=== PATIENT | female | born 1960 | race Two or more races ===

== ENCOUNTER 2019-09-04 10:16 | Inpatient (IN) | payer OTHER ==
[~2019-09-04] VITALS: Ht 162.6 cm; Wt 67.1 kg
--- NOTE | 2019-09-04 10:30 | NUR ---
SE RECIBE PACIENTE ALERTA Y ORIENTADA EN LAS [place] ESFERAS, VERBALIZA DOLOR ROCIO ABDOMINAL Y VOMITOS X 3. LA MISMA SE UBICA EN AREA [facility] [place] PARA EVALUACION MEDICA.
--- NOTE | 2019-09-04 11:58 | NUR ---
SE ORIENTA AL PACIENTE SOBRE MEDICAMENTO Y MUESTRAS A SER COLECTADAS LAURA ORDEN MEDICA. PACIENTE REFIERE ENTENDER. SE PROCEEDE A COLECTAR LAS MUESTRAS UTILIZANDO MEDIDAS ASEPTICAS Y SE ENVIAN AL LABORATORIO. SE PROVEE LOS MEDICAMENTOS Y SE OBSERVA AL PACIENTE POR CAMBIOS EN CONDICION. SE CANALIZA AL PACIENTE UTILIZANDO MEDIDAS ASEPICAS Y SE VERIFICA LA PAENTICIDAD DE LA MISMA. LA MISMA ESTA PATENTE, GREGORY DE EDEMA Y ENROJECIMIENTO.
[2019-09-25] MEDS ORDERED: AMOX-CLAV 875-1 EACH PO (12:03)
[2019-09-25] MEDS ORDERED: INTESTINEX680 M1 PO (12:03)
[2019-09-25] MEDS ORDERED: INTEGRA PLUS C1 EACH PO (12:04)
[2019-09-25] MEDS ORDERED: VITAMIN B-121000 MC2 SL (12:05)
[2019-09-25] MEDS ORDERED: FOLIC ACID0.8 M1 PO (12:07)
[2019-09-25] MEDS ORDERED: GABAPENTIN400 MG PO (12:09)
[2019-09-25] MEDS ORDERED: GABAPENTIN100 MG PO (12:13)
[2019-09-25] MEDS ORDERED: ULTRACET PO (12:18)
[2019-09-25] MEDS ORDERED: VITAMIN D310000 UNIT PO (12:23)
== END 2019-09-25 13:20 | disposition home or self-care (01) | DRG 329 ==
LOC: ER 10:16 → ICU 19:58 → MEDJ 19:58 → ICU 09-06 21:51 → SURH 09-17 13:16
PROVIDERS: Surgery; ADMIT Internal Medicine
PROC: BW21ZZZ Computerized Tomography (CT Scan) of Abdomen and Pelvis (ICD-10-PCS; 2019-09-04)
PROC: 0D1L0Z4 Bypass Transverse Colon to Cutaneous, Open Approach (ICD-10-PCS; 2019-09-07)
PROC: 4A033R1 Measurement of Arterial Saturation, Peripheral, Percutaneous Approach (ICD-10-PCS; 2019-09-07)
PROC: 0DH67UZ Insertion of Feeding Device into Stomach, Via Natural or Artificial Opening (ICD-10-PCS; 2019-09-07)
PROC: 3E0G76Z Introduction of Nutritional Substance into Upper GI, Via Natural or Artificial Opening (ICD-10-PCS; 2019-09-07)
PROC: 0DTN0ZZ Resection of Sigmoid Colon, Open Approach (ICD-10-PCS; principal; 2019-09-07 10:00)
PROC: 02HV33Z Insertion of Infusion Device into Superior Vena Cava, Percutaneous Approach (ICD-10-PCS; 2019-09-09)
PROC: 3E0336Z Introduction of Nutritional Substance into Peripheral Vein, Percutaneous Approach (ICD-10-PCS; 2019-09-09)
PROC: BW21Y0Z Computerized Tomography (CT Scan) of Abdomen and Pelvis using Other Contrast, Unenhanced and Enhanced (ICD-10-PCS; 2019-09-14)
PROC: 0W9F30Z Drainage of Abdominal Wall with Drainage Device, Percutaneous Approach (ICD-10-PCS; 2019-09-16)
PROC: 4A12X4Z Monitoring of Cardiac Electrical Activity, External Approach (ICD-10-PCS; 2019-09-17)
PROC: 8E0ZXY6 Isolation (ICD-10-PCS; 2019-09-17)
PROC: 30233N1 Transfusion of Nonautologous Red Blood Cells into Peripheral Vein, Percutaneous Approach (ICD-10-PCS; 2019-09-21)
PROC: BB24ZZZ Computerized Tomography (CT Scan) of Bilateral Lungs (ICD-10-PCS; 2019-09-23)
DX: K57.20 Diverticulitis of large intestine with perforation and abscess without bleeding (principal); K65.8 Other peritonitis; A41.9 Sepsis, unspecified organism; J18.1 Lobar pneumonia, unspecified organism; J90 Pleural effusion, not elsewhere classified; K56.690 Other partial intestinal obstruction; J98.11 Atelectasis; N17.8 Other acute kidney failure; D62 Acute posthemorrhagic anemia; J95.89 Other postprocedural complications and disorders of respiratory system, not elsewhere classified; E44.0 Moderate protein-calorie malnutrition; K92.1 Melena; E87.0 Hyperosmolality and hypernatremia; E87.6 Hypokalemia; D69.49 Other primary thrombocytopenia; E86.0 Dehydration; M62.81 Muscle weakness (generalized); R09.02 Hypoxemia; K63.89 Other specified diseases of intestine; K44.9 Diaphragmatic hernia without obstruction or gangrene; E11.9 Type 2 diabetes mellitus without complications; Z79.4 Long term (current) use of insulin

== ENCOUNTER 2019-10-07 14:57 | Outpatient (CLI) | payer OTHER ==
[~2019-10-07 14:57] MED LIST: AMOX-CLAV 875-1 EACH PO; FOLIC ACID0.8 M1 PO; GABAPENTIN100 MG PO; GABAPENTIN400 MG PO; INTEGRA PLUS C1 EACH PO; INTESTINEX680 M1 PO; ULTRACET PO; VITAMIN B-121000 MC2 SL; VITAMIN D310000 UNIT PO
== END 2019-10-07 15:17 | disposition home or self-care (01) ==
LOC: LAB 14:57
DX: J11.1 Influenza due to unidentified influenza virus with other respiratory manifestations (principal)

== ENCOUNTER 2020-03-24 14:40 | Outpatient (CLI) | payer OTHER | END 2020-03-24 14:41 | disposition home or self-care (01) | LOC: MAMO-SONO 14:40 | DX: Z12.31 Encounter for screening mammogram for malignant neoplasm of breast (principal); N60.11 Diffuse cystic mastopathy of right breast; N60.12 Diffuse cystic mastopathy of left breast ==

== ENCOUNTER → 2020-03-29 10:45 | Outpatient (CLI) | payer OTHER | END | disposition home or self-care (01) | LOC: EKG 10:45 | DX: K57.20 Diverticulitis of large intestine with perforation and abscess without bleeding (principal); R10.32 Left lower quadrant pain; Z93.3 Colostomy status; I10 Essential (primary) hypertension ==

== ENCOUNTER 2020-04-07 13:00 | Inpatient (IN) | payer OTHER ==
[~2020-04-07] VITALS: Ht 162.6 cm; Wt 68.0 kg
[2020-04-19] MEDS ORDERED: OXYC1TAB9 PO (09:16)
[2020-04-19] MEDS ORDERED: INTESTINEX680 M1 PO (09:16)
== END 2020-04-19 12:43 | disposition home or self-care (01) | DRG 331 ==
LOC: SURH 04-15 07:00 → O/R 04-15 09:52 → SURH 04-15 13:00
PROVIDERS: ADMIT Surgery; ATTEND Surgery
PROC: 0DBU4ZZ Excision of Omentum, Percutaneous Endoscopic Approach (ICD-10-PCS; 2020-04-15)
PROC: 0DSN4ZZ Reposition Sigmoid Colon, Percutaneous Endoscopic Approach (ICD-10-PCS; 2020-04-15)
PROC: 0DBN4ZZ Excision of Sigmoid Colon, Percutaneous Endoscopic Approach (ICD-10-PCS; principal; 2020-04-15 07:00)
DX: Z43.3 Encounter for attention to colostomy (principal); K57.30 Diverticulosis of large intestine without perforation or abscess without bleeding; D64.9 Anemia, unspecified

== ENCOUNTER 2020-04-13 06:36 | Day surgery (SDC) | payer OTHER | END 2020-04-13 10:00 | disposition home or self-care (01) | LOC: AMB-ENDOS 06:36 | PROVIDERS: ATTEND Surgery | DX: K62.89 Other specified diseases of anus and rectum (principal); Z93.3 Colostomy status ==

== ENCOUNTER 2020-06-29 19:57 | Emergency (ER) | payer OTHER ==
[~2020-06-29] VITALS: Ht 162.6 cm; Wt 68.0 kg
[~2020-06-29 19:57] MED LIST changes: +OXYC1TAB9 PO
== END 2020-06-29 22:56 | disposition home or self-care (01) ==
LOC: ER 19:57
DX: M54.2 Cervicalgia (principal); M54.89 Other dorsalgia

== ENCOUNTER 2021-02-01 12:08 | Outpatient (CLI) | payer OTHER | END 2021-02-01 12:11 | disposition home or self-care (01) | LOC: TOM 12:08 | PROVIDERS: ATTEND Surgery | DX: K57.20 Diverticulitis of large intestine with perforation and abscess without bleeding (principal); R10.32 Left lower quadrant pain; Z93.3 Colostomy status; K43.2 Incisional hernia without obstruction or gangrene ==

== ENCOUNTER 2021-03-31 12:42 | Inpatient (IN) | payer OTHER ==
[~2021-03-31] VITALS: Ht 162.6 cm; Wt 68.0 kg
[2021-04-07] MEDS ORDERED: PROTECT PLUS S1 EACH (09:46)
[2021-04-07] MEDS ORDERED: PHENTERMINE H37.5 M1 (09:46)
[2021-04-07] MEDS ORDERED: HYDROCHLOROTH12.5 MG (09:46)
[2021-04-07] MEDS ORDERED: CLONAZEPAM0.5 MG (09:46)
[2021-04-09] MEDS ORDERED: NEURONTIN600 M1 PO (17:04)
[2021-04-09] MEDS ORDERED: ULTRAM50 MG PO (17:04)
[2021-04-09] MEDS ORDERED: TYLENOL ARTHRI650 MG PO (17:04)
[2021-04-09] MEDS ORDERED: MIRALAX17 GM PO (17:07)
== END 2021-04-10 09:01 | disposition home or self-care (01) | DRG 355 ==
LOC: O/R 04-07 07:46 → SURH 04-07 08:15
PROVIDERS: ADMIT Surgery; ATTEND Surgery
PROC: 0WJF4ZZ Inspection of Abdominal Wall, Percutaneous Endoscopic Approach (ICD-10-PCS; 2021-04-07)
PROC: 0WUF0JZ Supplement Abdominal Wall with Synthetic Substitute, Open Approach (ICD-10-PCS; principal; 2021-04-07 08:15)
DX: K43.0 Incisional hernia with obstruction, without gangrene (principal); K42.0 Umbilical hernia with obstruction, without gangrene

== ENCOUNTER 2021-09-28 13:55 | Outpatient (CLI) | payer OTHER ==
[~2021-09-28 13:55] MED LIST changes: +CLONAZEPAM0.5 MG; +HYDROCHLOROTH12.5 MG; +MIRALAX17 GM PO; +NEURONTIN600 M1 PO; +PHENTERMINE H37.5 M1; +PROTECT PLUS S1 EACH; +TYLENOL ARTHRI650 MG PO; +ULTRAM50 MG PO
== END 2021-09-28 14:08 | disposition home or self-care (01) ==
LOC: MAMO-SONO 13:55
PROVIDERS: ATTEND Obstetrics & Gynecology
DX: N60.11 Diffuse cystic mastopathy of right breast (principal); N60.12 Diffuse cystic mastopathy of left breast; Z12.31 Encounter for screening mammogram for malignant neoplasm of breast

== ENCOUNTER → 2021-10-15 | Emergency (ER) | payer OTHER ==
[~2021-10-15] VITALS: Ht 162.6 cm; Wt 68.0 kg
== END | disposition home or self-care (01) ==
LOC: ER 18:21
DX: S82.62XA Displaced fracture of lateral malleolus of left fibula, initial encounter for closed fracture (principal); W18.39XA Other fall on same level, initial encounter; Y93.89 Activity, other specified; Y92.89 Other specified places as the place of occurrence of the external cause; Y99.8 Other external cause status

== ENCOUNTER 2023-05-16 13:15 | Outpatient (CLI) | payer OTHER | END 2023-05-16 13:16 | disposition home or self-care (01) | LOC: RAD 13:15 | PROVIDERS: ATTEND Ophthalmology | DX: R07.89 Other chest pain (principal) ==

== ENCOUNTER 2023-05-28 12:52 | Outpatient (CLI) | payer OTHER | END 2023-05-28 13:03 | disposition home or self-care (01) | LOC: MAMO-SONO 12:52 | PROVIDERS: ATTEND Obstetrics & Gynecology | DX: Z12.31 Encounter for screening mammogram for malignant neoplasm of breast (principal); N60.11 Diffuse cystic mastopathy of right breast; N60.12 Diffuse cystic mastopathy of left breast ==

== ENCOUNTER 2024-09-17 13:53 | Outpatient (CLI) | payer OTHER | END 2024-09-17 14:05 | disposition home or self-care (01) | LOC: MAMO-SONO 13:53 | PROVIDERS: ATTEND Obstetrics & Gynecology | DX: N60.11 Diffuse cystic mastopathy of right breast (principal); N60.12 Diffuse cystic mastopathy of left breast; Z12.31 Encounter for screening mammogram for malignant neoplasm of breast ==